=== PATIENT | female | born 1945 | race Caucasian/White ===

== ENCOUNTER 2020-02-28 15:37 | Outpatient (CLI) | payer MEDICARE, OTHER, SELFPAY ==
--- NOTE | 2020-02-28 15:52 | MM_ITS ---
WS: [id number] BILATERAL DIGITAL SCREENING MAMMOGRAPHY WITH CAD CLINICAL INFORMATION: SCREEN HISTORY: Screening mammogram. No current complaints. COMPARISON: TECHNIQUE: Bilateral CC and MLO views. FINDINGS: The breasts are composed of heterogeneous fibroglandular density tissue, which can limit the detectio n of small underlying mass lesions. No suspicious mass, asymmetry, calcifications, or architectural d istortion. No evidence of malignancy. MM/[id number] IMPRESSION: BI-RADS: 1-Negative FOLLOW UP: 1 Year Follow-up Recommend return to annual screening mammography.
== END 2020-02-28 15:38 | disposition home or self-care (01) ==
LOC: RADSHAW 15:45
PROVIDERS: Visit Provider Family Medicine
DX: Z12.31 Encounter for screening mammogram for malignant neoplasm of breast (principal)
CPT/HCPCS: 77067

== ENCOUNTER → 2021-02-02 08:38 | Outpatient (BNVA) | payer MEDICARE, OTHER, SELFPAY | PROVIDERS: Visit Provider Obstetrics & Gynecology | DX: N81.10 Cystocele, unspecified (principal); N81.6 Rectocele | CPT/HCPCS: 81000 ==

== ENCOUNTER → 2021-02-28 08:56 | Outpatient (BNVA) | payer MEDICARE, SELFPAY | PROVIDERS: PCP Family Medicine; Visit Provider Internal Medicine Rheumatology | DX: M18.0 Bilateral primary osteoarthritis of first carpometacarpal joints (principal); M19.041 Primary osteoarthritis, right hand; M19.042 Primary osteoarthritis, left hand; Z79.899 Other long term (current) drug therapy; M19.90 Unspecified osteoarthritis, unspecified site | CPT/HCPCS: 73130; 99203; 99204 ==

== ENCOUNTER 2021-02-28 09:57 | Outpatient (CLI) | payer MEDICARE, SELFPAY ==
--- NOTE | 2021-02-28 10:02 | XR_ITS ---
WS: [id number] LEFT HAND: 3 VIEW(S) TECHNIQUE: PA, oblique and lateral. HISTORY: M19.90 - Unspecified osteoarthritis, unspecified site COMPARISON: None available. No acute fracture or dislocation. Severe narrowing of the DIP joints with gullwing deformity and erosions. No periostitis. Moderate adrian rowing of the PIP joints. Advanced degenerative changes at the CMC and mild at the STT articulations. Prior avulsion fracture ulnar styloid. XR/XR hand LT min 3V* [id number] IMPRESSION: 1. 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 2. Additional advanced osteoarthritis at the CMC joint and mild at the STT art iculations.
--- NOTE | 2021-02-28 10:02 | XR_ITS ---
WS: [id number] RIGHT HAND: 3 VIEW(S) TECHNIQUE: PA, oblique and lateral. HISTORY: M19.90 - Unspecified osteoarthritis, unspecified site COMPARISON: None available. No acute fracture or dislocation. Severe narrowing of the DIP joints, second through fifth fingers. Gullwing deformity with erosions an d osteophyte formation. No periostitis definitely visualized. There is also mild narrowing of the PIP joints. Moderate CMC and STT arthritis. XR/XR hand RT min 3V* [id number] IMPRESSION: 1. Changes suspicious for erosive osteoarthritis most significantly involving the DIP joints. 2. Additional osteoarthritis at the CMC and STT articulations.
== END 2021-02-28 09:58 | disposition home or self-care (01) ==
PROVIDERS: PCP Family Medicine; Visit Provider Internal Medicine Rheumatology
DX: M19.90 Unspecified osteoarthritis, unspecified site (principal); Z79.899 Other long term (current) drug therapy
CPT/HCPCS: 73130

== ENCOUNTER 2021-03-15 09:42 | Outpatient (CLI) | payer MEDICARE, SELFPAY ==
--- NOTE | 2021-03-15 09:46 | MM_ITS ---
WS: [id number] SCREENING DIGITAL MAMMOGRAM WITH CAD HISTORY: SCREENING COMPARISON: 02/28/2020 and 11/24/2018 Bilateral CC and MLO views submitted. Computer aided detection analyzed. Breast composition: The breasts are heterogeneously dense, which may obscure small masses. No suspici ous masses, microcalcifications or architectural distortion. MM/[id number] IMPRESSION: BI-RADS: 1-Negative FOLLOW UP: 1 Year Follow-up
== END 2021-03-15 09:43 | disposition home or self-care (01) ==
LOC: RADSHAW 09:44
PROVIDERS: PCP Family Medicine; Visit Provider Obstetrics & Gynecology
DX: Z12.31 Encounter for screening mammogram for malignant neoplasm of breast (principal)
CPT/HCPCS: 77067

== ENCOUNTER → 2021-04-06 08:39 | Outpatient (BNVA) | payer MEDICARE, SELFPAY | PROVIDERS: PCP Family Medicine; Visit Provider Obstetrics & Gynecology | DX: N81.10 Cystocele, unspecified (principal); N81.9 Female genital prolapse, unspecified; Z01.812 Encounter for preprocedural laboratory examination | CPT/HCPCS: 87635 ==

== ENCOUNTER 2021-04-11 11:01 | Observation (INO) | payer MEDICARE, OTHER, SELFPAY ==
[2021-04-09 11:38] VITALS: BMI 23.3
[2021-04-09 12:20] LABS: Add Urine Microscopic? NO; Charge for UA Resulting for Rev
[2021-04-09 12:43] LABS: Basophils % 0.3 %; Eosinophils # 0.2 10^3/uL (0.0-0.8); Eosinophils % 2.6 %; Hematocrit 38.7 % (37.0-47.0); Hemoglobin 12.9 g/dL (11.5-15.3); Lymphocytes # 1.8 10^3/uL (0.8-4.8); Lymphocytes % 30.8 %; Mean Corpuscular HGB Conc 33.3 g/dL (30.0-36.0); Mean Corpuscular Hemoglobin 29.9 pg (28.0-34.0); Mean Corpuscular Volume 89.6 fl (81-99); Mean Platelet Volume 10.6 fL (7.4-10.4); Monocytes # 0.4 10^3/uL (0.2-0.9); Monocytes % 6.2 %; Neutrophils # 3.52 10^3/uL (1.8-7.7); Neutrophils % 60.1 %; Nucleated Red Blood Cells % 0 %; Platelet Count 288 10^3/cmm (130-400); Red Blood Count 4.32 10^6/uL (4.1-5.3); Red Cell Distribution Width 13.3 % (12.1-15.1); White Blood Count 5.9 10^3/uL (4.0-10.0)
[2021-04-09 12:46] LABS: Alanine Aminotransferase 15 U/L (0-33); Albumin Level 4.4 g/dL (3.5-5.2); Alkaline Phosphatase 83 IU/L (35-105); Anion Gap 17.9 (5-19); Aspartate Amino Transferase 32 U/L (0-32); Blood Urea Nitrogen 18 mg/dL (8-23); Calcium 8.7 mg/dL (8.5-10.5); Carbon Dioxide 21 mmol/L (22-29); Chloride 106 mmol/L (98-107); Globulin 2.1 g/dL (1.3-4.6); Glucose 83 mg/dL (65-115); Osmolality Calculated 293 mOsm/kg (285-295); Potassium 3.9 mmol/L (3.5-5.1); Sodium 141 mmol/L (136-145); Total Bilirubin 0.2 mg/dL (0.15-1.2); Total Protein 6.5 g/dL (6.6-8.7)
[2021-04-09 12:56] LABS: Bilirubin Urine Neg (Negative); Blood Urine Neg (Negative); Glucose Urine UA Norm (Normal); Ketones Urine Negative (Negative); Nitrate Urine Negative (Negative); Protein Urine Neg (Negative); Specific Gravity, Urine 1.025 (1.005-1.030); Urine Appearance Clear (CLEAR); Urine Color Straw (Yellow); pH Urine 5 (5-7)
[2021-04-09 12:57] LABS: Leukocyte Esterase Urine Negative (Negative); Urobilinogen Urine Norm (Negative)
--- NOTE | 2021-04-09 15:50 | ANES.PREANE2 ---
Pre-Anesthetic Assessment Pre-Anesthetic Assessment: Height/Weight: Height 1.75 m Weight 71.668 kg Preop Diagnosis: Cystocele stage III Proposed Procedure: Operation Date: 04/11/21 11:30 Proposed Procedures p Anterior Repair Anterior Colporrhaphy [id number](Not Applicable) - Kuldeep Villavicencio MD s Sling(Not Applicable) - Kuldeep Villavicencio MD s Sacrospinous Ligament Suspension(Not Applicable) - Kuldeep Villavicencio MD Was Beta Azucena taken within 24 hours: N/A Was Clonidine taken within 24 hours: N/A Social: Social History: No alcohol and No tobacco Exam: Pre-Anes Outpt Exam: alert, oriented x 3, clear to auscultation bilaterally and regular rate & rhythm Airway: Submandibular: WNL Cervical ROM: WNL MP: 2 Dentition: Full Musc/skel: Musc/skel: OA/DJD Anesthetic Plan: ASA status: 2 Anesthesia: General Risk of > 500 ml blood loss (7ml/kg in children): No PFSH Anesthesia PFSH: Medical History Arthritis [place]-Walker grade 3 cystocele Endometriosis IBS (irritable bowel syndrome) Joint pain Migraine Osteoarthritis of carpometacarpal (CMC) joint of both thumbs Osteoarthritis of hands, bilateral Vaginal vault prolapse Surgical History H/O: hysterectomy 1978--complete (c BSO) Hx of adenoidectomy Hx of cholecystectomy 1979 Hx of tonsillectomy Family History Mother Hyperlipidemia COPD (chronic obstructive pulmonary disease) Brother Hyperlipidemia Denies family history of Rheumatoid arthritis Diabetes Ovarian cyst Lupus Clotting disorder Chronic kidney disease (CKD) Anesthesia complication Bleeding disorder Cancer Hypertension Thyroid disease Stroke Social History (Updated 04/09/21 @ 08:31 by Pricilla Ruiz RN) Smoking and tobacco status: never smoked Alcohol intake: current Alcohol intake frequency: holidays/special occasions only Substance/Drug Use: never Data Anesthesia CBC & Chem 7: 04/09/21 11:50 04/09/21 11:50 Other Labs: Laboratory Results - last 48 hr 04/09/21 04/09/21 04/09/21 11:50 11:50 11:50 WBC 5.9 RBC 4.32 Hgb 12.9 Hct 38.7 MCV 89.6 MCH 29.9 MCHC 33.3 RDW 13.3 Plt Count 288 MPV 10.6 H Neut % (Auto) 60.1 Lymph % (Auto) 30.8 [place] % (Auto) 6.2 Eos % (Auto) 2.6 Baso % (Auto) 0.3 Neut # (Auto) 3.52 Lymph # (Auto) 1.8 [place] # (Auto) 0.4 Eos # (Auto) 0.2 Baso # (Auto) 0.0 Nucleated RBC % (auto) 0 Nucleated RBCs # 0.0 Sodium 141 Potassium 3.9 Chloride 106 Carbon Dioxide 21 L Anion Gap 17.9 BUN 18 Creatinine 0.6 GFR Calculation Not Reportable Glucose 83 Calculated Osmolality 293 Calcium 8.7 Total Bilirubin 0.2 AST 32 ALT 15 Alkaline Phosphatase 83 Total Protein 6.5 L Albumin 4.4 Globulin 2.1 Urine Color Urine Appearance Urine pH Ur Specific [place] Urine Protein Urine Glucose (UA) Urine Ketones Urine Blood Urine Nitrate Urine Bilirubin Urine Urobilinogen Ur Leukocyte Esterase Blood Type O Positive Rho(D) Type Positive Antibody Screen Negative 04/09/21 11:50 WBC RBC Hgb Hct MCV MCH MCHC RDW Plt Count MPV Neut % (Auto) Lymph % (Auto) [place] % (Auto) Eos % (Auto) Baso % (Auto) Neut # (Auto) Lymph # (Auto) [place] # (Auto) Eos # (Auto) Baso # (Auto) Nucleated RBC % (auto) Nucleated RBCs # Sodium Potassium Chloride Carbon Dioxide Anion Gap BUN Creatinine GFR Calculation Glucose Calculated Osmolality Calcium Total Bilirubin AST ALT Alkaline Phosphatase Total Protein Albumin Globulin Urine Color Straw Urine Appearance Clear Urine pH 5 Ur Specific [place] 1.025 Urine Protein Neg Urine Glucose (UA) Norm Urine Ketones Negative Urine Blood Neg Urine Nitrate Negative Urine Bilirubin Neg Urine Urobilinogen Norm Ur Leukocyte Esterase Negative Blood Type Rho(D) Type Antibody Screen Cardiac Studies: No Data to Display
[2021-04-11] VITALS (16 sets, daily range): BP systolic 102–138; BP diastolic 31–87; PULSE 64–79; RESP 10–20; TEMP 36.4–36.8; O2SAT 95–100
--- NOTE | 2021-04-11 08:37 | P.ANESUD_ITS ---
Pre-Anesthetic Update Pre-Anesthetic Assessment: Date of Surgery/Procedure: 04/11/21 Preop Rose gnosis: Cystocele stage III Proposed Procedure: Operation Date: 04/11/21 09:10 Proposed Procedures p Anterior Repair Anterior Colporrhaphy [id number](Not Applicable) - Kuldeep Villavicencio MD s Sling(Not Applicable) - Kuldeep Villavicencio MD s Sacrospinous Ligament Suspension(Not Applicable) - Kuldeep Villavicencio MD Any changes to Pre-Anesthetic Assessment?: No Last Intake: Intake Last Liquid Date 04/10/21 Last Liquid Time 22:30 Last Solid Date 04/10/21 Last Solid Time 22:30 Labs Last 48hrs: Laboratory Results - last 48 hr 04/09/21 04/09/21 04/09/21 11:50 11:50 11:50 WBC 5.9 RBC 4.32 Hgb 12.9 Hct 38.7 MCV 89.6 MCH 29.9 MCHC 33.3 RDW 13.3 Plt Count 288 MPV 10.6 H Neut % (Auto) 60.1 Lymph % (Auto) 30.8 [place] % (Auto) 6.2 Eos % (Auto) 2.6 Baso % (Auto) 0.3 Neut # (Auto) 3.52 Lymph # (Auto) 1.8 [place] # (Auto) 0.4 Eos # (Auto) 0.2 Baso # (Auto) 0.0 Nucleated RBC % (a uto) 0 Nucleated RBCs # 0.0 Sodium 141 Potassium 3.9 Chloride 106 Carbon Dioxide 21 L Anion Gap 17.9 BUN 18 Creatinine 0.6 GFR Calculation Not Reportable Glucose 83 Calculated Osmolal ity 293 Calcium 8.7 Total Bilirubin 0.2 AST 32 ALT 15 Alkaline Phosphata se 83 Total Protein 6.5 L Albumin 4.4 Globulin 2.1 Urine Color Urine Appearance Urine pH Ur Specific Gravit y Urine Protein Urine Glucose (UA) Urine Ketones Urine Blood Urine Nitrate Urine Bilirubin Urine Urobilinogen Ur Leukocyte Kendra ase Blood Type O Positive Rho(D) Type Positive Antibody Screen Negative 04/09/21 11:50 WBC RBC Hgb Hct MCV MCH MCHC RDW Plt Count MPV Neut % (Auto) Lymph % (Auto) [place] % (Auto) Eos % (Auto) Baso % (Auto) Neut # (Auto) Lymph # (Auto) [place] # (Auto) Eos # (Auto) Baso # (Auto) Nucleated RBC % (a uto) Nucleated RBCs # Sodium Potassium Chloride Carbon Dioxide Anion Gap BUN Creatinine GFR Calculation Glucose Calculated Osmolal ity Calcium Total Bilirubin AST ALT Alkaline Phosphata se Total Protein Albumin Globulin Urine Color Straw Urine Appearance Clear Urine pH 5 Ur Specific Gravit y 1.025 Urine Protein Neg Urine Glucose (UA) Norm Urine Ketones Negative Urine Blood Neg Urine Nitrate Negative Urine Bilirubin Neg Urine Urobilinogen Norm Ur Leukocyte Kendra ase Negative Blood Type Rho(D) Type Antibody Screen Vitals: Temperature 98 F 04/11/21 08:08 Temperature Source Temporal Artery S can 04/11/21 08:08 Pulse Rate 79 04/11/21 08:08 Pulse Rhythm 04/11/21 08:17 Pulse Strength 3+ Normal 04/11/21 08:17 Respiratory Rate 17 04/11/21 08:08 Blood Pressure 123/64 04/11/21 08:08 Blood Pressure Kaylynn n 83 04/11/21 08:08 Pulse Oximetry 99 04/11/21 08:08 Oxygen Delivery Me thod 04/11/21 08:17 Exam: Pre-Anes Outpt Exam: alert, oriented x 3, clear to auscultation bilaterally and regular rate & rhythm Cardiac Studies: No Data to Display
--- NOTE | 2021-04-11 08:41 | W.PM.OPSUD ---
Surgery/Procedure H&P Update DATE OF PROCEDURE: April 11, 2021 DATE H&P PERFORMED: 04/09/21 H&P UPDATE INFORMATION: I have reviewed H&P completed within last 30 days, I have examined patient prior to procedure and No changes to prior documentation PREOP DIAGNOSIS: Cystocele stage III PLANNED PROCEDURE: Operation Date: 04/11/21 09:10 Proposed Procedures p Anterior Repair Anterior Colporrhaphy [id number](Not Applicable) - Kuldeep Villavicencio MD s Sling(Not Applicable) - Kuldeep Villavicencio MD s Sacrospinous Ligament Suspension(Not Applicable) - Kuldeep Villavicencio MD
[2021-04-11] MEDS: sodium chloride 0.9% 500 ML IV (08:55)
[2021-04-11] MEDS: scopolamine 1.5 Patch 1 PATCH TRANSDERMA (09:00)
[2021-04-11] MEDS: sodium chloride 0.9% 1,000 ML 30 ML IV (09:01)
[2021-04-11] MEDS: estrogens Conjugated Cream 30 gm 1 APPLIC VAGINAL (10:20)
--- NOTE | 2021-04-11 10:26 | PM.OP ---
Operative Report Date of procedure: April 11, 2021 Pre-op Diagnosis: Cystocele stage III, stress urinary incontinence Post-op diagnosis: same Procedure Done: Anterior colporrhaphy augmented with allograft. Single incision mid-urethral sling. Sacrospinous fixation. Cystoscopy Implants: Coloplast Altis single incision sling Surgeon: Kuldepe Villavicencio MD Estimated blood loss (mL): 100 IV fluids (mL): 400 Urine output (mL): 300 Complications: None Findings: Cystocele stage III Condition: stable Disposition: PACU Procedure: After obtaining informed consent, the patient was taken to the operating room and placed in the supine position, given general anesthesia, and prepped and draped in sterile fashion. The abdomen, vulva and vagina were prepped and draped in a sterile manner. A time out procedure was performed. The anterior vaginal mucosa beneath the midurethra was infiltrated with 0.5% Marcaine with epinephrine. A vertical midline incision was made beneath the midurethra, nearly 1.5 cm length. Careful submucosal dissection was performed bilaterally up to the interior portion of the inferior pubic ramus. The insertion of adductor longus tendon on the patient?s pubic ramus was identified as reference land mimi. Palpated the notch along the internal edge of ischiopubic ramus where the adductor longus tendon and the inferior pubic ramus meet. The Altis single incision sling (SIS) was selected. Then the needle of the SIS inserted aiming at the location of this notch. One of the integrated self-fixating tips place onto the needle by sliding it over the end of the needle. The needle/sling assembly was inserted toward the location of identified reference notch making sure that the flat of the handle is perpendicular to the desired path. The needle was tracked along the posterior surface of the ischiopubic ramus until the midline mimi on the mesh is approximately at the midline position under the urethra. The needle was removed and the same was repeated on the contralateral side until the appropriate sling tension under the urethra was achieved ensuring that the mesh lays flat. The needle was removed and vaginal incision was closed in a running interlocking fashion with 2-0 Vicryl. The vaginal mucosa was scored in the midline with the Bovie approximately 1 cm from midurethral sling to 1 cm distal to the vaginal cuff. This vaginal mucosa was then undermined and then incised in the midline with the Metzenbaum scissors. The lateral aspects of the vaginal mucosa were then grasped with the Allis clamps and the vaginal mucosa was then dissected off the underlying fascia with the Metzenbaum scissors. Again, there was noted to be quite a bit of oozing at the incision, which was controlled with cautery. After adequate dissection was performed, bilaterally. An ACell MatriStem Pelvic Floor Matrix is modified at time of application to fit spacea, 4 x 4 cm piece . MatriStem PFM placed in front of cystocele ready to be implanted with the Basement Membrane facing the vagina mucosa. Suture is placed at distal end of graft and placed towards vaginal cuff. Final suture is placed on proximal portion of the graft to complete the placement overlying the bladder. Then Interrupted vertical mattress sutures of 0 Vicryl were used to elevate the cystocele superiorly. The excessive vaginal mucosa was then trimmed with the Metzenbaum scissors and the vaginal mucosa was then reapproximated in the running interlocking fashion with 2-0 Vicryl. The posterior vaginal mucosa is opened in the routine fashion. A finger is inserted through the incision in the posterior vaginal mucosa, dissecting out the rectovaginal space (RVS). The right rectal pillar (RRP) is identified. The rectal pillar can be bluntly perforated either with the finger or with the tip of a long Miranda clamp. A Brebritta-Navmarisela retractor is used for exposing the rectovaginal space in order to enter the pararectal space with retraction of the cardinal ligament, vagina, and rectum. Displacing the rectum to the left and the cardinal ligament and ureter anteriorly. A sponge dissector is used to bluntly dissect the sacrospinous ligament removing areolar tissue. The ischial spine was palpated directly, and a area approximately 2 cm medial to the spine was selected for insertion of the Anchorsure transvaginal sacrospinous fixation system. One end of the suture of Anchoresure system inserted through the sacrospinous ligament is placed through the muscular layer of the vagina. In a similar manner, the second suture is placed. The opposite end of the suture in the sacrospinous ligament is left free and held on a small hemostat. Then traction on this suture will draw the vaginal vault directly to the ligament, where a square knot affixes it to the sacrospinous ligament. After the brooke stich is tied the second safety stich is tied. Then the vaginal repair is carried out in routine fashion. Then the Levy catheter was removed and cystoscope was inserted. The bladder was filled with sterile water. Complete evaluation of the bladder mucosa was performed noting no lacerations, dimpling, tears, bleeding of the mucosa or muscular layers. Both ureteral orifices were identified. Prompt excretion of urine from both ureteral orifices was noted. Cystoscope was withdrawn. The Levy catheter was replaced. Excellent hemostasis was obtained. A vaginal pack is placed overnight as postoperative support for the vaginal tissues after graft placement and closure of vaginal incisions. Sponge, lap, needle, and instrument counts were correct times three. The patient was taken to the recovery room, awake and in stable condition.
[2021-04-11] MEDS: ketorolac 30 mg/mL INJ IVP ×3 (11:38→23:06)
[2021-04-11] MEDS: dextrose 5%-lactated ringers 1,000 ML 125 ML IV (13:30)
--- NOTE | 2021-04-11 14:17 | ANE.PACU2 ---
Inpatient post-anesthesia follow up: Airway intact: Yes Vital signs: Temperature 97.5 F Pulse Rate 69 Respiratory Rate 16 Blood Pressure 138/63 Pulse Oximetry 95 Oxygen Delivery Me thod Room Air Oxygen Flow Rate 10 Fraction of Inspir ed Oxygen Hydration adequate: Yes Nausea and vomiting: No Pain level: 3 Mental status: Baseline
[2021-04-11] MEDS: artificial tears Op Soln 15 mL Btl 1 DROP EYE-BOTH (16:17)
[2021-04-11] MEDS: docusate sodium 100 mg Capsule PO (17:53)
[2021-04-12 04:58] LABS: Hematocrit 32.8 % (37.0-47.0); Hemoglobin 11.1 g/dL (11.5-15.3); Mean Corpuscular HGB Conc 33.8 g/dL (30.0-36.0); Mean Corpuscular Hemoglobin 30.4 pg (28.0-34.0); Mean Corpuscular Volume 89.9 fl (81-99); Mean Platelet Volume 9.5 fL (7.4-10.4); Platelet Count 236 10^3/cmm (130-400); Red Blood Count 3.65 10^6/uL (4.1-5.3); Red Cell Distribution Width 13.2 % (12.1-15.1); White Blood Count 7.7 10^3/uL (4.0-10.0)
[2021-04-12 05:15] VITALS: BP 110/53; PULSE 74; RESP 14; O2SAT 94
--- NOTE | 2021-04-12 05:58 | PC.NURSE ---
Addendum entered by Maria Fernanda Castorena RN 04/12/21 05:59: education given at 0500 with removal of Levy. Vaginal packing removed at this time intact Original Note: patient educated on procedure for post void residuals. requested that patient notify nurse prior to voiding
[2021-04-12] MEDS: docusate sodium 100 mg Capsule PO (09:08)
[2021-04-12] MEDS: ibuprofen 800 mg tablet PO (09:08)
--- NOTE | 2021-04-12 09:51 | PM.OBGYDC ---
Discharge Providers EXTERNAL GRINDER Date of Admission: 04/11/21 11:01 Date of Discharge: 04/12/21 Attending Provider at Admission: Kuldeep Villavicencio MD Attending Provider at Discharge: Kuldeep Villavicencio MD Primary Care Provider: Ryan Garcia MD Reason for Visit Reason for Visit: anterior colporrhapy Hospital Course Hospital Course Mrs. King 76-year-old female with cystocele stage III and urinary incontinence. Admitted for planned anterior colporrhaphy augmented with allograft, single incision mid urethral sling, and sacrospinous fixation. The procedures were performed without complication. Overnight observation was uneventful. She is afebrile and hemodynamically stable. Tolerating diet well. Ambulating without difficulty. Pain well under control. Her PVR was elevated. And she will be discharged with a Levy catheter bag and instructed to follow-up at the clinic on Friday Physical Exam Narrative: EXAM NARRATIVE: GA: Alert and oriented ?3. HEENT: WNL. Heart: Regular rate and rhythm. Lungs: Clear to auscultation bilaterally. Abdomen: Bowel sounds present, nontender. LINEN ROOM SUPERVISOR: Spotting bleeding. Extremities: No edema, no cyanosis, no calves pain. Urinary Catheter Management^: Levy: Cath Placed During This Visit: yes, but has since been removed by the nurse Reason for Continuing Indwelling Catheter: Decision to DC Catheter Urinary Catheter Date of Insertion: 04/11/21 Urinary Catheter Time of Insertion: 09:25 Date Urinary Catheter Removed: 04/12/21 Time Urinary Catheter Discontinued: 05:00 History History History 1 Term 1 Miscarriages/Ectopic 0 0 Living Children 1 Discharge Data Data Completed and Pending: Pending at discharge Category Date Time Status ES surgery / GI i mages Routine Exams 04/11/21 10:07 Taken Labs from last 24 hours 04/12/21 04:56 WBC 7.7 RBC 3.65 L Hgb 11.1 L Hct 32.8 L MCV 89.9 MCH 30.4 MCHC 33.8 RDW 13.2 Plt Count 236 MPV 9.5 Vitals: Last Vital Signs Temp 98.2 F 04/11/21 18:30 Pulse 74 04/12/21 05:15 Resp 14 04/12/21 05:15 BP 110/53 04/12/21 05:15 Pulse Ox 94 04/12/21 05:15 Discharge Plan Discharge Patient Disposition: Home Condition: Stable Prescriptions: New ibuprofen 800 mg tablet 800 mg PO TID PRN (Reason: pain) Qty: 60 RF: 0 hydrocodone-acetaminophen 5-325 mg tablet 1 tab PO Q4H PRN (Reason: pain) Qty: 20 RF: 0 acetaminophen 325 mg capsule 325 mg PO Q4H PRN (Reason: fever or pain) Qty: 60 RF: 0 nitrofurantoin macrocrystal 100 mg capsule 100 mg PO BID 7 Days Qty: 14 RF: 0 Continued omega-3 fatty acids [Fish Oil Concentrate] 1,000 mg capsule 1,000 mg PO DAILY RF: 0 Ultra CoQ10 75 mg capsule 75 mg PO DAILY RF: 0 fexofenadine [Yohana Allergy] 60 mg tablet 60 mg PO DAILY PRN (Reason: Allergy Symptoms) RF: 0 peppermint oil 0.2 mL capsule,delayed release(DR/EC) 0.2 ml PO PRN (Reason: ibs) RF: 0 multivitamin with minerals [Hair,Skin and Nails] Tablet 1 tab PO DAILY RF: 0 loperamide [Imodium A-D] 2 mg tablet 2 mg PO Q6H PRN (Reason: Diarrhea) RF: 0 diclofenac sodium 1 % gel 2 g topical QID Qty: 100 RF: 2 lutein extract-zeaxanthin ext 15-0.7 mg capsule 15 cap PO DAILY RF: 0 vit A-vit C-vit U-xdkx-uvcnif 7,160-113-100 mlhx-xv-qjmv tablet PO RF: 0 cosme root-pyridoxine HCl(B6) 325-25 mg capsule 325 cap PO DAILY RF: 0 Premarin 0.625 mg tablet 0.625 mg PO DAILY Qty: 30 RF: 6 hydroxychloroquine 200 mg tablet 200 mg PO DAILY RF: 0 Discharge Orders: Discharge Order (Routine); Ordered 04/12/21 Ordered By: Kuldeep Villavicencio Referrals: Kuldeep Villavicencio MD [Physician] - 04/17/21 3:15 pm (Your 1 week post-op appointment is scheduled for 04/17/21 @3:15. Your 6 week post-op appointment is scheduled for 05/22/21 @2:30. ) Discharge Diet: Usual diet Discharge Activity: Increase activity as tolerated Patient Instructions: Cystocele (DC), Bladder Sling (GEN), Anterior Vaginal Repair (DC), OB Discharge Report, OB Food/Drug Interaction Guide, Opioid Safety Activity Restrictions/Additional Instructions: 1. Please call [facility] on next working day to make your post-operative appointment in 2 weeks. 2. Please stay home until you come back to the clinic on first post-operative check up. 3. Please follow instructions on your medications CAREFULLY. 4. If you have abdominal incision, do not cover it unless dressing is necessary because of drainage. OK to shower, but avoid bath. Leave steri-strips until they fall off. If they are still on one week after surgery, you may remove them. 5. If you had vaginal surgery or vaginal repair, Dr. Villavicencio may instruct you to take SITZ bath. 6. Yellow, blood tinged odorous vaginal discharge is usually normal after hysterectomy or vaginal surgeries. 7. No sexual intercourse, tampons, or douches until you are completely released from the post-operative care. 8. Avoid constipation by eating right and maybe using some Metamucil or Milk of Magnesia. 9. All prescription refills are given during the working hours. Please do no wait till it runs out. Call the clinic at [phone] before your medication runs out. The clinic will get in touch with your doctor to prescribe medications if necessary. 10. Please remain within 40 mile radius from our hospital because emergencies do happen now and then during the post-operative period. 11. If you have stairs at home, take one step at a time slowly and minimize the number of trips. It helps to stay in one floor for the next few days. No lifting except what you can lift by one hand until you are released from the post-operative care. 12. Driving is discouraged until you are well healed. It may be 3-4 weeks before you feel strong enough to drive. You should be able to turn and look through the rear window without pain and you should be able to push the brake pedal very hard without pain before you drive. No fast rules, but SAFETY should be your primary concern. DO NOT drive if you are on sedating medications such as narcotics. 13. Call the clinic (during working hours) to make urgent appointment or go to the Emergency room, if any of the following occurs: i. Vaginal bleeding becomes heavy, more than a period. ii. Incision becomes red and sore, or drains pus. iii. Your temperature is over 100.4 or you have chill. iv. IV site becomes red and swollen (a little ``knot?? is usually OK) v. Persistent nausea and vomiting vi. Persistent constipation or diarrhea vii. Rash or allergic reaction to medications. Discharge Attestations EXTERNAL GRINDER Time Spent in Discharge Care*: greater than 30 min Coding Level of Care Code Acute Research Biologist for Татьяна Mackey
[2021-04-12 10:11] VITALS: BP 107/53; PULSE 73; RESP 17; TEMP 36.6; O2SAT 97
== END 2021-04-12 11:30 | disposition home or self-care (01) ==
LOC: OBGYN 11:01
PROVIDERS: Admitting Provider Obstetrics & Gynecology; PCP Family Medicine; Visit Provider Obstetrics & Gynecology
PROC: 0JQC0ZZ Repair Pelvic Region Subcutaneous Tissue and Fascia, Open Approach (ICD-10-PCS; CPT 57240; principal; 2021-04-11 09:00)
PROC: (CPT 57288; 2021-04-11 09:00)
PROC: (CPT 57282; 2021-04-11 09:00)
DX: N81.10 Cystocele, unspecified (principal); R32 Unspecified urinary incontinence; Z90.710 Acquired absence of both cervix and uterus
CPT/HCPCS: 57240; 57267; 57288; 36415; 51702; 51798; 80053; 81003; 85025; 85027; 86850; 86900; 96365; C1713; C1762; G0378; J0690; J1885; J2704; J3010; J3490; J7030; J7040

== ENCOUNTER 2021-05-02 13:04 | Outpatient (CLI) | payer MEDICARE, OTHER, SELFPAY ==
--- NOTE | 2021-05-02 13:30 | US_ITS ---
WS: [id number] ULTRASOUND BILATERAL BREAST HISTORY: Pain. COMPARISON: 11/24/2017. Bilateral screening mammogram 03/15/2021 TECHNIQUE: 2-D and Doppler. All 4 quadrants of each breast are imaged. There is a hypoechoic nodule in the RIGHT breast at 10:00, 3 cm from the nipple. This nodule measures 7 x 5 x 5 mm. No increased vascularity. There are a few a djacent mildly dilated ducts extending towards the nipple. Similar mild duct dilatation in the LEFT breast. No mass. US/US breast BI complete [id number] IMPRESSION: BI-RADS: 3-Probably Benign FOLLOW-UP: 6 Month Follow-up Recommend 6 month RIGHT breast ultrasound follow-up. There is a hypoechoic nodu le which is probably a fibroadenoma or complex cyst. Alternatively if the patie nt desires ultrasound-guided biopsy could be obtained.
== END 2021-05-02 13:05 | disposition home or self-care (01) ==
LOC: RAD 13:07
PROVIDERS: PCP Family Medicine; Visit Provider Obstetrics & Gynecology
DX: R92.2 Inconclusive mammogram (principal)
CPT/HCPCS: 76641

== ENCOUNTER → 2021-06-28 13:10 | Outpatient (BNVA) | payer MEDICARE, OTHER, SELFPAY | PROVIDERS: PCP Family Medicine; Visit Provider Internal Medicine Rheumatology | DX: M19.041 Primary osteoarthritis, right hand (principal); M19.042 Primary osteoarthritis, left hand; M18.0 Bilateral primary osteoarthritis of first carpometacarpal joints; Z79.899 Other long term (current) drug therapy | CPT/HCPCS: 99213; 99214 ==

== ENCOUNTER 2021-09-17 14:35 | Outpatient (CLI) | payer MEDICARE, OTHER, SELFPAY ==
--- NOTE | 2021-09-17 14:47 | XR_ITS ---
WS: [email or web address] SCREENING DEXA SCAN [employer] CLINICAL INFORMATION: OSTEOPENIA COMPARISON: 2017 FINDINGS: The L1-L4 bone mineral density measures 1.132 g/cm2. This corresponds to a T score score of -0.4 and Z score of 1.2. Left femoral neck bone mineral density measures 0.825 g/cm2. This corresponds to a T score of -1.4 an d Z score of 0.2. Right femoral neck bone mineral density measures 0.807 g/cm2. This corresponds to a T score -1.6of an d Z score of 0.0. Mean femoral neck bone mineral density measures 0.816 g/cm2. This corresponds to a T score of -1.5 an d Z score of 0.1. XR/XR DEXA axial skeleton* [id number] IMPRESSION: Normal bone mineralization lumbar spine. Osteopenia in the femoral necks. Patient's FRAX calculated 10 year probability for major osteoporotic fracture i s 16.9 % and osteoporotic hip fracture is 3.2%.
== END 2021-09-17 14:36 | disposition home or self-care (01) ==
LOC: RAD 14:40
PROVIDERS: PCP Family Medicine; Visit Provider Family Medicine
DX: Z78.0 Asymptomatic menopausal state (principal)
CPT/HCPCS: 77080

== ENCOUNTER 2021-11-06 14:11 | Outpatient (CLI) | payer MEDICARE, OTHER, SELFPAY ==
--- NOTE | 2021-11-06 14:30 | US_ITS ---
WS: [email or web address] ULTRASOUND BREAST RIGHT TECHNIQUE: Ultrasound right breast focused area of concern. CLINICAL INFORMATION: R92.2 - Inconclusive mammogram COMPARISON: Ultrasound May 02, 2021 FINDINGS: Again seen is the hypoechoic ovoid lesion at the 10:00 position 3 cm from the nipple. This is unchang ed in appearance from previous measuring 5 x 5 x 4 mm. This remains technically indeterminant. Recomm end additional six-month follow-up to confirm stability. Additional lesion consistent with benign simple appearing cyst at the 10:00 position 2 cm from the ni pple measuring 6 x 6 x 4 mm is also unchanged. Incidental ductal ectasia. US/US breast RT limited* [id number] IMPRESSION: BI-RADS 3 probably benign FOLLOW UP: 6 months Recommend additional 6 month follow-up ultrasound of the indeterminate RIGHT br east hypoechoic lesion at the 10:00 position 3 cm from the nipple.
== END 2021-11-06 14:12 | disposition home or self-care (01) ==
PROVIDERS: PCP Family Medicine; Visit Provider Obstetrics & Gynecology
DX: R92.2 Inconclusive mammogram (principal)
CPT/HCPCS: 76642

== ENCOUNTER 2022-03-28 06:00 | Outpatient (RCR) | payer MEDICARE, OTHER, SELFPAY | END 2022-04-27 23:59 | disposition home or self-care (01) | LOC: SPT 06:00 | PROVIDERS: PCP Family Medicine; Visit Provider Family Medicine | DX: M25.552 Pain in left hip (principal) | CPT/HCPCS: 97110; 97161 ==

== ENCOUNTER 2022-04-28 06:00 | Outpatient (RCR) | payer MEDICARE, OTHER, SELFPAY | END 2022-05-23 16:29 | disposition home or self-care (01) | LOC: SPT 06:00 | PROVIDERS: PCP Family Medicine; Visit Provider Family Medicine | DX: G57.00 Lesion of sciatic nerve, unspecified lower limb (principal) | CPT/HCPCS: 97530 ==

== ENCOUNTER 2022-05-06 10:52 | Outpatient (CLI) | payer MEDICARE, OTHER, SELFPAY ==
--- NOTE | 2022-05-06 11:00 | US_ITS ---
WS: [email or web address] ULTRASOUND BREAST RIGHT TECHNIQUE: Ultrasound right breast focused area of concern. CLINICAL INFORMATION: N63.0 - Unspecified lump in unspecified breast COMPARISON: Ultrasound November 06, 2021 FINDINGS: Again seen is an anechoic simple cyst at the 10:00 position. This is stable in appearance measuring 5 .1 x 4.3 x 4.3 mm. This is stable since November 06, 2021. The additional previously described nonspecific hypoechoic lesion at the 10:00 position is not defini tely visualized today. Recommend additional six-month follow-up to confirm resolution. No other suspi cious findings. US/US breast RT limited* [id number] IMPRESSION: BI-RADS 3 probably benign FOLLOW UP: 6 month follow-up ultrasound RIGHT breast
== END 2022-05-06 10:53 | disposition home or self-care (01) ==
LOC: RAD 10:54
PROVIDERS: PCP Family Medicine; Visit Provider Obstetrics & Gynecology
DX: N63.11 Unspecified lump in the right breast, upper outer quadrant (principal); N60.01 Solitary cyst of right breast
CPT/HCPCS: 76642

== ENCOUNTER 2022-06-04 15:17 | Outpatient (CLI) | payer MEDICARE, OTHER, SELFPAY ==
--- NOTE | 2022-06-04 15:37 | MM_ITS ---
WS: [email or web address] BILATERAL 3D TOMOSYNTHESIS DIGITAL DIAGNOSTIC MAMMOGRAPHY WITH CAD CLINICAL INFORMATION: RT BREAST LUMP;ANNUAL HISTORY: RIGHT breast lump COMPARISON: March 15, 2021 and ultrasound May 06, 2022 TECHNIQUE: Bilateral CC, MLO, and ML views. FINDINGS: The breasts are composed of heterogeneous fibroglandular density, which can limit the detection of sm all underlying mass lesions. A few incidental punctate calcifications. Previously described lesions in the RIGHT breast on ultrasound not definitely visualized on mammograp hy. Otherwise no significant parenchymal changes in the RIGHT or LEFT breast compared to March 16, 2021. MM/[place] [id number] IMPRESSION: BI-RADS: 2-Benign FOLLOW UP: 1 Year Follow-up Patient previously scheduled to return for ultrasound RIGHT breast, six-month f ollow-up, from May 06, 2022 ultrasound examination Otherwise bilateral diagnostic mammography in one year
== END 2022-06-04 15:18 | disposition home or self-care (01) ==
PROVIDERS: PCP Family Medicine; Visit Provider Obstetrics & Gynecology
DX: N63.10 Unspecified lump in the right breast, unspecified quadrant
CPT/HCPCS: 77062; G0279

== ENCOUNTER 2022-11-04 14:59 | Outpatient (CLI) | payer MEDICARE, OTHER, SELFPAY ==
--- NOTE | 2022-11-04 15:15 | US_ITS ---
WS: [email or web address] ULTRASOUND BREAST RIGHT TECHNIQUE: Ultrasound right breast focused area of concern. CLINICAL INFORMATION: N63.0 - Unspecified lump in unspecified breast COMPARISON: 05/06/2022 , 11/06/2021, and May 02, 2021 FINDINGS: Previously described simple cyst at the 10:00 position 3 cm from the nipple is unchanged measuring 5. 5 x 4.2 x 4.5 mm. Previously described smaller adjacent hypoechoic lesion is visualized today measuring 4.4 x 2.9 x 4.2 mm at the 10:00 position 3 cm from the nipple. This is stable compared to November 06, 2021. This likely represents a tiny slightly complex cyst. Recommend return to annual screening mammography. US/US breast RT limited* [id number] IMPRESSION: BI-RADS 2 benign Recommend return to annual screening mammography.
== END 2022-11-04 15:00 | disposition home or self-care (01) ==
PROVIDERS: PCP Family Medicine; Visit Provider Obstetrics & Gynecology
DX: N60.01 Solitary cyst of right breast (principal); A67 Pinta [carate]
CPT/HCPCS: 76642

== ENCOUNTER 2023-09-08 15:21 | Outpatient (CLI) | payer MEDICARE, OTHER, SELFPAY ==
--- NOTE | 2023-09-08 15:24 | MM_ITS ---
WS: [email or web address] BILATERAL 3D TOMOSYNTHESIS DIGITAL SCREENING MAMMOGRAPHY WITH CAD CLINICAL INFORMATION: SCREENING HISTORY: Screening mammogram. No current complaints. COMPARISON: 06/04/2022 TECHNIQUE: Bilateral CC and MLO views. FINDINGS: The breasts are composed of heterogeneous fibroglandular density tissue, which can limit the detectio n of small underlying mass lesions. Bilateral scattered punctate calcifications similar to previous. Progressed clustered calcifications lower outer LEFT breast. Recommend spot magnification views. This is best seen on the cc view. RIGHT breast is unchanged. MM/[place] [id number] IMPRESSION: BI-RADS: 0-Incomplete: Need additional imaging evaluation FOLLOW UP: Need Additional Imaging Recommend spot magnification views of the LEFT breast clustered calcifications.
== END 2023-09-08 15:22 | disposition home or self-care (01) ==
LOC: RAD 15:21
PROVIDERS: PCP Family Medicine; Visit Provider Nurse Practitioner Women's Health
DX: Z12.31 Encounter for screening mammogram for malignant neoplasm of breast (principal); R92.333 Mammographic heterogeneous density, bilateral breasts; R92.1 Mammographic calcification found on diagnostic imaging of breast
CPT/HCPCS: 77063; 77067

== ENCOUNTER 2023-10-02 14:23 | Outpatient (CLI) | payer MEDICARE, OTHER, SELFPAY ==
--- NOTE | 2023-10-02 14:30 | MM_ITS ---
NOTE: Report was unsigned for reason: Order was edited. Original Signature date and time was: 10/02/23 @ 1525 WS: [email or web address] LEFT 3D TOMOSYNTHESIS DIGITAL MAMMOGRAPHY WITH CAD CLINICAL INFORMATION: R92.8 - Other abnormal and inconclusive findings on diagn... HISTORY: Additional views for calcifications COMPARISON: 09/08/2023 TECHNIQUE: 2 views of the left breast were obtained. FINDINGS: The left breast is composed of heterogeneous fibroglandular density tissue, which can limit the detection of small underlying mass lesions. Magnification views obtained of the clustered calcifications outer LEFT breast. These are more faint in appearance today. These are only well seen on the cc view. Recommend 6- month follow-up to confirm stability. MTDD MM/[id number] IMPRESSION: BI-RADS: 3-Probably Benign FOLLOW UP: 6 Month Follow-up Recommend 6-month follow-up LEFT breast diagnostic mammography with spot magnif ication views of the faint calcifications outer LEFT breast
== END 2023-10-02 14:24 | disposition home or self-care (01) ==
LOC: RAD 14:23
PROVIDERS: PCP Nurse Practitioner Women's Health; Visit Provider Obstetrics & Gynecology
DX: R92.8 Other abnormal and inconclusive findings on diagnostic imaging of breast (principal); R92.332 Mammographic heterogeneous density, left breast; R92.1 Mammographic calcification found on diagnostic imaging of breast
CPT/HCPCS: 77061; 77062; G0279

== ENCOUNTER 2024-02-17 15:15 | Observation (INO) | payer MEDICARE, OTHER, SELFPAY ==
[2024-02-12 11:15] LABS: Basophils % 0.5 %; Eosinophils # 0.1 10^3/uL (0.0-0.8); Eosinophils % 2.2 %; Hematocrit 39.7 % (36-47); Lymphocytes # 2.4 10^3/uL (0.8-4.8); Lymphocytes % 39.1 %; Mean Corpuscular HGB Conc 33.2 g/dL (30-55); Mean Corpuscular Hemoglobin 30.8 pg (27-33); Mean Corpuscular Volume 92.8 fl (85-98); Mean Platelet Volume 9.2 fL (7.4-10.4); Monocytes # 0.6 10^3/uL (0.2-0.9); Monocytes % 9.8 %; Neutrophils # 2.91 10^3/uL (1.8-7.7); Neutrophils % 48.1 %; Nucleated Red Blood Cells % 0 %; Platelet Count 290 10^3/cmm (157-399); Red Blood Count 4.28 10^6/uL (3.85-5.65); Red Cell Distribution Width 13.3 % (12.1-15.1); White Blood Count 6.04 10^3/uL (3.29-11.43)
--- NOTE | 2024-02-12 11:30 | P.ANESASSM_ITS ---
Pre-Anesthetic Assessment Height/Weight: Height 5 ft 9 in Preop Diagnosis: Prolapse Operation Date: 02/17/24 12:05 Proposed Procedures p Anterior Repair Anterior Colporrhaphy 16773, 89601, N81.10, N81.6(Not Applicable) - Kuldeep Villavicencio MD s Posterior Repair Posterior Colporrhaphy(Not Applicable) - Kuldeep Villavicencio MD s Sacrospinous Ligament Suspension Sacrospinous Fixation(Not Applicable) - Kuldeep Villavicencio MD Was Beta Azucena taken within 24 hours: N/A Was Clonidine taken within 24 hours: N/A Social No alcohol and No tobacco Exam alert, oriented x 3, clear to auscultation bilaterally and regular rate & rhythm Airway Submandibular: within normal limits Cervical ROM: within normal limits Mallampati: Class II Dentition: full Anesthetic Plan ASA status: 2 Anesthesia: General Other: No prior issues with anesthesia Patient had a terrible experience with IV in preop last time Plan to be NPO after midnight Patient does take tramadol occasionally for arthritis Denies any cardiac or pulmonary issues Labs 02/12/2024 reviewed and acceptable for procedure METs greater than 4 Plan for general anesthesia Medications/Allergies Home Medications Medication Instructions Recorded Confirmed Last Taken Type coenzyme Q10 75 mg capsule (Ultra 75 mg PO DAILY 08/21/20 02/12/24 02/11/24 History CoQ10) multivitamin with minerals 1 tab PO DAILY 08/21/20 02/12/24 02/11/24 History (Hair,Skin and Nails tablet) omega-3 fatty acids 1,000 mg 1,000 mg PO DAILY 08/21/20 02/12/24 02/11/24 History capsule (Fish Oil Concentrate) peppermint oil 0.2 mL 0.2 ml PO DAILY PRN ibs 08/21/20 02/12/24 02/11/24 History capsule,delayed release loperamide 2 mg tablet (Imodium 2 mg PO Q6H PRN Diarrhea 02/28/21 02/12/24 02/12/24 History A-D) cosme root 325 mg-pyridoxine HCl 325 cap PO DAILY 04/09/21 02/12/24 02/11/24 History (vitamin B6) 25 mg capsule lutein 15 mg-zeaxanthin extract 15 cap PO DAILY 04/09/21 02/12/24 02/11/24 History 0.7 mg capsule acetaminophen 325 mg capsule 325 mg PO Q4H PRN fever or pain 04/12/21 02/12/24 02/12/24 Rx #60 caps lysine 500 mg tablet (L-Lysine) 500 mg PO DAILY 05/10/21 02/12/24 02/10/24 History diclofenac sodium 1 % topical gel 2 g topical QID PRN Pain 05/22/21 02/12/24 Unknown History fexofenadine 60 mg tablet (Yohana 60 mg PO DAILY Allergy Symptoms 05/22/21 02/12/24 02/12/24 History Allergy) conjugated estrogens 0.625 mg 0.625 mg PO DAILY #30 tabs 03/18/22 02/12/24 02/11/24 Rx tablet (Premarin) aspirin 81 mg chewable tablet 81 mg PO DAILY 06/26/22 02/12/24 01/06/24 History meloxicam 15 mg tablet 15 mg PO DAILY 06/26/22 02/12/24 02/11/24 History tramadol 50 mg tablet 50 mg PO DAILY 06/26/22 02/12/24 02/12/24 History Allergies Allergy/AdvReac Type Severity Reaction Status Date / Time adhesive Allergy rash Verified 02/09/24 15:10 lidocaine Allergy rash Verified 02/09/24 15:10 neomycin Allergy rash Verified 02/09/24 15:10 [facility] Anesthesia Medical History Aftercare following surgery of the genitourinary system Arthritis [employer] grade 3 cystocele Endometriosis IBS (irritable bowel syndrome) Joint pain Migraine Osteoarthritis of carpometacarpal (CMC) joint of both thumbs Osteoarthritis of hands, bilateral Vaginal vault prolapse Surgical History H/O: hysterectomy 1978--complete (c BSO) Hx of adenoidectomy Hx of cholecystectomy 1979 Hx of tonsillectomy S/P anterior colporrhaphy 04/11/2021- anterior colporrhaphy augmented with allograft, single incision mid-urethal sling, sacrospinous fixation and cystoscopy performed by Dr. Villavicencio at [facility] Family History Mother Hyperlipidemia Brother Hyperlipidemia Denies family history of Colon cancer Ovarian cancer Diabetes Breast cancer Hypertension Uterine cancer Thyroid disease Stroke Social History Smoking and tobacco/nicotine status: never used tobacco/nicotine Substance/Drug Use: never Data Anesthesia 02/12/24 11:00 02/12/24 11:00 Short CBC 02/12/24 Range/Units 11:00 WBC 6.04 (3.29-11.43) 10^3/uL Hgb 13.20 (11.27-16.99) g/dL Hct 39.7 (36-47) % MCV 92.8 (85-98) fl Plt Count 290 (157-399) 10^3/cmm Neut % (Auto) 48.1 % Neut # (Auto) 2.91 (1.8-7.7) 10^3/uL Cardiac Studies: 2 No Data to Display
[2024-02-12 11:34] LABS: Alanine Aminotransferase 15 U/L (0-33); Albumin Level 4.3 g/dL (3.5-5.2); Alkaline Phosphatase 76 U/L (35-105); Anion Gap 14.2 (5-19); Aspartate Amino Transferase 31 U/L (0-32); Blood Urea Nitrogen 22 mg/dL (8-23); Calcium 8.9 mg/dL (8.5-10.5); Carbon Dioxide 25 mmol/L (22-29); Chloride 107 mmol/L (98-107); Globulin 2.2 g/dL (1.3-4.6); Glucose 76 mg/dL (65-115); Osmolality Calculated 296 mOsm/kg (285-295); Potassium 4.2 mmol/L (3.5-5.1); Sodium 142 mmol/L (136-145); Total Bilirubin 0.3 mg/dL (0.15-1.2); Total Protein 6.5 g/dL (6.6-8.7)
[2024-02-17] VITALS (17 sets, daily range): BP systolic 112–156; BP diastolic 54–78; PULSE 63–84; RESP 8–18; TEMP 36.1–36.9; O2SAT 91–100; BMI 22.8
[2024-02-17] MEDS: MIDAZOLAM HCL 10 MG/5 ML UDC 20 MG PO (11:02)
[2024-02-17] MEDS: sodium chloride 0.9% 1,000 ML 30 ML IV (11:37)
[2024-02-17] MEDS: enoxaparin 30 mg/0.3 mL Syringe SUBCUT (11:37)
[2024-02-17] MEDS: ceFAZolin 2,000 mg SDV 2000 MG IVP (12:29)
--- NOTE | 2024-02-17 12:40 | P.ANESUD_ITS ---
Pre-Anesthetic Update Pre-Anesthetic Assessment: Date of Surgery/Procedure: 02/17/24 Preop Rose gnosis: Cystocele, rectocele Proposed Procedure: Operation Date: 02/17/24 11:55 Proposed Procedures p Anterior Repair Anterior Colporrhaphy 76927, 58610, N81.10, N81.6(Not Applicable) - Kuldeep Villavicencio MD s Posterior Repair Posterior Colporrhaphy(Not Applicable) - Kuldeep Villavicencio MD s Sacrospinous Ligament Suspension Sacrospinous Fixation(Not Applicable) - Kuldeep Villavicencio MD Any changes to Pre-Anesthetic Assessment?: No Last Intake: Intake Last Liquid Date 02/16/24 Last Liquid Time 22:00 Last Solid Date 02/16/24 Last Solid Time 22:00 Labs Last 48hrs: Blood Bank 02/17/24 11:37 Blood Type O Positive Rho(D) Type Rh positive Vitals: Temperature 98.4 F 02/17/24 10:45 Temperature Source Temporal Artery S can 02/17/24 10:45 Pulse Rate 65 02/17/24 12:25 Pulse Rhythm Regular 02/17/24 10:45 Pulse Strength 3+ Normal 02/17/24 10:45 Respiratory Rate 18 02/17/24 10:45 Blood Pressure 148/73 02/17/24 10:45 Blood Pressure Kaylynn n 98 02/17/24 10:45 Pulse Oximetry 96 02/17/24 12:25 Oxygen Delivery Me thod Nasal Cannula 02/17/24 12:25 Oxygen Flow Rate 2 02/17/24 12:25 Exam: Pre-Anes Outpt Exam: alert, oriented x 3, clear to auscultation bilaterally and regular rate & rhythm Cardiac Studies: No Data to Display
--- NOTE | 2024-02-17 13:12 | W.PM.OPSUD ---
Surgery/Procedure H&P Update DATE OF PROCEDURE: February 17, 2024 DATE H&P PERFORMED: 02/09/24 H&P UPDATE INFORMATION: I have reviewed H&P completed within last 30 days, I have examined patient prior to procedure and No changes to prior documentation PREOP DIAGNOSIS: Cystocele, rectocele PLANNED PROCEDURE: Operation Date: 02/17/24 11:55 Proposed Procedures p Anterior Repair Anterior Colporrhaphy 03448, 13096, N81.10, N81.6(Not Applicable) - Kuldeep Villavicencio MD s Posterior Repair Posterior Colporrhaphy(Not Applicable) - Kuldeep Villavicencio MD s Sacrospinous Ligament Suspension Sacrospinous Fixation(Not Applicable) - Kuldeep Villavicencio MD
[2024-02-17] MEDS: lidocaine-epi 2% PF 1:200,000 20 mL SDV 10 ML XX (14:04)
--- NOTE | 2024-02-17 15:01 | PM.OP ---
Operative Report Date of procedure: February 17, 2024 Pre-op diagnosis: Cystocele stage III Rectocele stage 1 Post-op diagnosis: same Procedure done: Anterior colporrhaphy augmented with allograft Surgeon: Kuldeep Villavicencio MD Estimated blood loss (mL): 10 IV fluids (mL): 1,500 Urine output (mL): 150 Findings: Cystocele Procedure: After obtaining informed consent, the patient was taken to the operating room and placed in the supine position, given general anesthesia, and prepped and draped in sterile fashion. The abdomen, vulva and vagina were prepped and draped in a sterile manner. A time out procedure was performed. The vaginal mucosa was then injected in the midline with 2% lidocaine with epinephrine. The vaginal mucosa was scored in the midline with the Bovie approximately 1 cm medial to the urethral meatus to 1 cm distal to the vaginal cuff. This vaginal mucosa was then undermined and then incised in the midline with the Metzenbaum scissors. The lateral aspects of the vaginal mucosa were then grasped with the Allis clamps and the vaginal mucosa was then dissected off the underlying fascia with the Metzenbaum scissors. Again, there was noted to be quite a bit of oozing at the incision, which was controlled with cautery. After adequate dissection was performed, bilaterally. A coloplast Dermis allograft was modified at time of application to fit spacea, 3 x 3 cm piece. The Coloplast allograft was placed in front of cystocele ready to be implanted facing the vagina mucosa. Suture is placed at distal end of graft and placed towards vaginal cuff. Final suture is placed on proximal portion of the graft to complete the placement overlying the bladder. Then Interrupted vertical mattress sutures of 0 Vicryl were used to elevate the cystocele superiorly. The excessive vaginal mucosa was then trimmed with the Metzenbaum scissors and the vaginal mucosa was then reapproximated in the running interlocking fashion with 2-0 Vicryl. After the anterior wall vaginal repair no need for posterior colporrhaphy was noted. The Levy catheter was with clear yellow urine. Excellent hemostasis was obtained. A vaginal pack is placed overnight as postoperative support for the vaginal tissues after graft placement and closure of vaginal incisions. Sponge, lap, needle, and instrument counts were correct times three. The patient was taken to the recovery room, awake and in stable condition.
--- NOTE | 2024-02-17 16:03 | PC.NURSE ---
1540 - REYNA Lester notified of pts vaginal packing as well as nurse in the room - per this nurse
[2024-02-17] MEDS: ketorolac 30 mg/mL INJ IVP ×2 (16:17→22:23)
[2024-02-17] MEDS: HYDROcodone-acetaminophen 5-325 mg Tablet PO (18:22)
[2024-02-17] MEDS: dextrose 5%-lactated ringers 1,000 ML 125 ML IV (21:00)
[2024-02-18] MEDS: ketorolac 30 mg/mL INJ IVP (04:40)
--- NOTE | 2024-02-18 05:19 | PC.NURSE ---
Packing removed at this time by Brianna Burris RN
[2024-02-18 05:40] LABS: Hematocrit 31.8 % (36-47); Mean Corpuscular HGB Conc 33.3 g/dL (30-55); Mean Corpuscular Hemoglobin 30.5 pg (27-33); Mean Corpuscular Volume 91.6 fl (85-98); Mean Platelet Volume 9.8 fL (7.4-10.4); Platelet Count 206 10^3/cmm (157-399); Red Blood Count 3.47 10^6/uL (3.85-5.65); Red Cell Distribution Width 13.2 % (12.1-15.1); White Blood Count 9.65 10^3/uL (3.29-11.43)
[2024-02-18 10:01] VITALS: BP 111/66; PULSE 72; RESP 16; TEMP 36.7; O2SAT 94
--- NOTE | 2024-02-18 12:24 | P.DS_ITS ---
Discharge Providers VISUAL MERCHANDISING ASSISTANT Date of Admission: 02/17/24 15:15 Date of Discharge: 02/18/24 Attending Provider at Admission: Kuldeep Villavicencio MD Attending Provider at Discharge: Kuldeep Villavicencio MD Primary Care Provider: Moe Colbert MD Reason for Visit Reason for Visit: N81.10, N81.6 Hospital Course Hospital Course Mrs. King 78-year-old female admitted for planned anterior vaginal repair. An anterior colporrhaphy augmented with allograft was performed without complication. Overnight observation was uneventful. Tolerating diet well. Ambulating without difficulty. She is afebrile hemodynamically stable postoperative day 1. She was counseled regarding pelvic rest for 6 weeks (no sex, no tampons, no vaginal douches). Return to the emergency room if any fever, increased bleeding or pain. Physical Exam Narrative: GA: Alert and oriented ?3. HEENT: WNL. Heart: Regular rate and rhythm. Lungs: Clear to auscultation bilaterally. Abdomen: Bowel sounds present, nontender.. H[employer]ER: spotting bleeding. Extremities: No edema, no cyanosis, no calves pain. Urinary Catheter Management: Levy: Cath Placed During This Visit: yes, but has since been removed by the nurse Reason for Continuing Indwelling Catheter: Decision to DC Catheter Urinary Catheter Date of Insertion: 02/17/24 Urinary Catheter Time of Insertion: 13:57 Date Urinary Catheter Removed: 02/18/24 Time Urinary Catheter Discontinued: 05:19 History History History 1 Term 1 0 Miscarriages/Ectopic 0 Living Children 1 Discharge Data Studies Completed and Pending Laboratory Results WBC 9.65 10^3/uL (3.29-11.43) 02/18/24 05:20 RBC 3.47 10^6/uL (3.85-5.65) L 02/18/24 05:20 Hgb 10.60 g/dL (11.27-16.99) L 02/18/24 05:20 Hct 31.8 % (36-47) L 02/18/24 05:20 MCV 91.6 fl (85-98) 02/18/24 05:20 MCH 30.5 pg (27-33) 02/18/24 05:20 MCHC 33.3 g/dL (30-55) 02/18/24 05:20 RDW 13.2 % (12.1-15.1) 02/18/24 05:20 Plt Count 206 10^3/cmm (157-399) 02/18/24 05:20 MPV 9.8 fL (7.4-10.4) 02/18/24 05:20 Neut % (Auto) 48.1 % 02/12/24 11:00 Lymph % (Auto) 39.1 % 02/12/24 11:00 [place] % (Auto) 9.8 % 02/12/24 11:00 Eos % (Auto) 2.2 % 02/12/24 11:00 Baso % (Auto) 0.5 % 02/12/24 11:00 Neut # (Auto) 2.91 10^3/uL (1.8-7.7) 02/12/24 11:00 Lymph # (Auto) 2.4 10^3/uL (0.8-4.8) 02/12/24 11:00 [place] # (Auto) 0.6 10^3/uL (0.2-0.9) 02/12/24 11:00 Eos # (Auto) 0.1 10^3/uL (0.0-0.8) 02/12/24 11:00 Baso # (Auto) 0.0 10^3/uL (0.0-0.1) 02/12/24 11:00 Nucleated RBC % (auto) 0 % 02/12/24 11:00 Nucleated RBCs # 0.0 /100WBC 02/12/24 11:00 Sodium 142 mmol/L (136-145) 02/12/24 11:00 Potassium 4.2 mmol/L (3.5-5.1) 02/12/24 11:00 Chloride 107 mmol/L (98-107) 02/12/24 11:00 Carbon Dioxide 25 mmol/L (22-29) 02/12/24 11:00 Anion Gap 14.2 (5-19) 02/12/24 11:00 BUN 22 mg/dL (8-23) 02/12/24 11:00 Creatinine 0.6 mg/dL (0.5-0.9) 02/12/24 11:00 GFR Calculation Not Reportable 02/12/24 11:00 Glucose 76 mg/dL (65-115) 02/12/24 11:00 Calculated Osmolality 296 mOsm/kg (285-295) H 02/12/24 11:00 Calcium 8.9 mg/dL (8.5-10.5) 02/12/24 11:00 Total Bilirubin 0.3 mg/dL (0.15-1.2) 02/12/24 11:00 AST 31 U/L (0-32) 02/12/24 11:00 ALT 15 U/L (0-33) 02/12/24 11:00 Alkaline Phosphatase 76 U/L (35-105) 02/12/24 11:00 Total Protein 6.5 g/dL (6.6-8.7) L 02/12/24 11:00 Albumin 4.3 g/dL (3.5-5.2) 02/12/24 11:00 Globulin 2.2 g/dL (1.3-4.6) 02/12/24 11:00 Blood Type O Positive 02/17/24 11:37 Rho(D) Type Rh positive 02/17/24 11:37 Antibody Screen Negative 02/17/24 11:37 Vitals Last Vital Signs Temp 98.0 F 02/18/24 10:01 Pulse 72 02/18/24 10:01 Resp 16 02/18/24 10:01 BP 111/66 02/18/24 10:01 Pulse Ox 94 02/18/24 10:01 O2 Del Method Room Air 02/18/24 10:01 O2 Flow Rate 8 02/17/24 15:15 Results Labs OB ([facility]): Blood Type O Positive 02/17/24 Antibody Screen Negative 02/17/24 Hct 31.8 % (36-47) L 02/18/24 Hgb 10.60 g/dL (11.27-16.99) L 02/18/24 Rho(D) Type Rh positive 02/17/24 Plt Count 206 10^3/cmm (157-399) 02/18/24 Discharge Plan Discharge Patient Disposition: Home Condition: Stable Prescriptions: New docusate sodium 100 mg Capsule 100 mg PO BID 0RF ibuprofen 800 mg tablet 800 mg PO TID PRN (Reason: pain) Qty: 60 0RF acetaminophen 325 mg capsule 325 mg PO Q4H PRN (Reason: fever or pain) Qty: 60 0RF nitrofurantoin macrocrystal 100 mg capsule 100 mg PO BID 3 Days Qty: 6 0RF Rx Instructions: must administer with a meal/food Continued omega-3 fatty acids [Fish Oil Concentrate] 1,000 mg capsule 1,000 mg PO DAILY Ultra CoQ10 75 mg capsule 75 mg PO DAILY peppermint oil 0.2 mL capsule,delayed release(DR/EC) 0.2 ml PO DAILY PRN (Reason: ibs) multivitamin with minerals [Hair,Skin and Nails] Tablet 1 tab PO DAILY fexofenadine [Yohana Allergy] 60 mg tablet 60 mg PO DAILY loperamide [Imodium A-D] 2 mg tablet 2 mg PO Q6H PRN (Reason: Diarrhea) lutein-zeaxanthin extract 15-0.7 mg capsule 15 cap PO DAILY lysine [L-Lysine] 500 mg tablet 500 mg PO DAILY cosme root-pyridoxine HCl(B6) 325-25 mg capsule 325 cap PO DAILY diclofenac sodium 1 % gel 2 g topical QID PRN (Reason: Pain) Rx Instructions: apply to affected area as needed aspirin 81 mg tablet,chewable 81 mg PO DAILY meloxicam 15 mg tablet 15 mg PO DAILY tramadol 50 mg tablet 50 mg PO DAILY Premarin 0.625 mg tablet 0.625 mg PO DAILY Qty: 30 2RF acetaminophen 325 mg capsule 325 mg PO Q4H PRN (Reason: fever or pain) Qty: 60 0RF Discharge Orders: Discharge Order (Routine); Ordered 02/18/24 Ordered By: Kuldeep Villavicencio Referrals: Kuldeep Villavicencio MD [Physician] - 03/29/24 4:00 pm Ayah Marques APN, WHNP [Nurse Practitioner] - 03/03/24 11:00 am Patient Instructions: Laxative, Stool Softeners (By mouth), Acute Wound Care (DC), Anterior Vaginal Repair (DC), Anterior Vaginal Repair (GEN), Opioid Safety, Post Anesthesia Care Activity Restrictions/Additional Instructions: 1. Please call [facility] on next working day to make your post-operative appointment in 2 weeks. 2. Please stay home until you come back to the clinic on first post- hospatilization check up. 3. Please follow instructions on your medications CAREFULLY. 4. If you have abdominal incision, do not cover it unless dressing is necessary because of drainage. OK to shower, but avoid bath. Leave steri-strips until they fall off. If they are still on one week after surgery, you may remove them. 5. If you had vaginal surgery or vaginal repair, Dr. Villavicencio may instruct you to take SITZ bath. 6. Yellow, blood tinged odorous vaginal discharge is usually normal after hyst erectomy or vaginal surgeries. 7. No SEXUAL INTERCOURSE, tampons, or douches until you are completely released from the post-operative care. 8. Avoid constipation by eating right and maybe using some Metamucil or Milk of Magnesia. 9. All prescription refills are given during the working hours. Please do no wait till it runs out. Call the clinic at [phone] before your medication runs out. The clinic will get in touch with your doctor to prescribe medications if necessary. 10. Please remain within 40 mile radius from our hospital because emergencies do happen now and then during the post-operative period. 11. If you have stairs at home, take one step at a time slowly and minimize the number of trips. It helps to stay in one floor for the next few days. No lifting except what you can lift by one hand until you are released from the post-operative care. 12. Driving is discouraged until you are well healed. It may be 3-4 weeks before you feel strong enough to drive. You should be able to turn and look through the rear window without pain and you should be able to push the brake pedal very hard without pain before you drive. No fast rules, but SAFETY should be your primary concern. DO NOT drive if you are on sedating medications such as narcotics. 13. Call the clinic (during working hours) to make urgent appointment or go to the Emergency room, if any of the following occurs: i. Vaginal bleeding becomes heavy, more than a period. ii. Incision becomes red and sore, or drains pus. iii. Your TEMPERATURE is over 100.4F or you have chill. iv. IV site becomes red and swollen (a little ``knot?? is usually OK) v. Persistent nausea and vomiting vi. Persistent constipation or diarrhea vii. Rash or allergic reaction to medications. Discharge Attestations VISUAL MERCHANDISING ASSISTANT Time Spent in Discharge Care*: greater than 30 min Coding Level of Care Code Acute Code for Chg Fwd
[2024-02-18 12:30] VITALS: BP 111/66; PULSE 72; RESP 16; TEMP 36.7; O2SAT 94
== END 2024-02-18 12:30 | disposition home or self-care (01) ==
LOC: OBGYN 15:16
PROVIDERS: Admitting Provider Obstetrics & Gynecology; PCP Family Medicine; Visit Provider Obstetrics & Gynecology
PROC: 0JQC0ZZ Repair Pelvic Region Subcutaneous Tissue and Fascia, Open Approach (ICD-10-PCS; CPT 57240; principal; 2024-02-17 11:45)
DX: N81.10 Cystocele, unspecified (principal); N81.6 Rectocele; Z79.82 Long term (current) use of aspirin
CPT/HCPCS: 57240; 36415; 80053; 85025; 85027; 86850; 86900; 96374; 96376; C1762; G0378; J0690; J1100; J1650; J1885; J2405; J2704; J3010; J7030; J7121

== ENCOUNTER 2024-04-15 14:45 | Outpatient (CLI) | payer MEDICARE, OTHER, SELFPAY ==
--- NOTE | 2024-04-15 15:00 | MM_ITS ---
WS: [id number] LEFT 3D TOMOSYNTHESIS DIGITAL MAMMOGRAPHY WITH CAD CLINICAL INFORMATION: R92.8 - Other abnormal and inconclusive findings on diagn... HISTORY: 6-month follow-up calcifications COMPARISON: 10/02/2023 TECHNIQUE: 3 views of the left breast were obtained. FINDINGS: The left breast is composed of heterogeneous fibroglandular density tissue, which can limit the detec tion of small underlying mass lesions. Again seen are the clustered calcifications outer LEFT breast best seen on the cc view. These are unchanged in appearance compared to previous. Recommend additiona l 6-month follow-up until 18 to 24-month stability MM/MM diag LT tomosynthesis [id number] IMPRESSION: DENSITY: The breasts are heterogeneously dense, which may obscure small masses. BI-RADS: 3 - Probably Benign FOLLOW UP: 6 Month Follow-up Recommend 6-month follow-up LEFT breast calcifications with spot magnification views
== END 2024-04-15 14:46 | disposition home or self-care (01) ==
LOC: RAD 14:46
PROVIDERS: PCP Family Medicine; Visit Provider Obstetrics & Gynecology
DX: R92.8 Other abnormal and inconclusive findings on diagnostic imaging of breast (principal); R92.333 Mammographic heterogeneous density, bilateral breasts; R92.1 Mammographic calcification found on diagnostic imaging of breast
CPT/HCPCS: 77061; G0279

== ENCOUNTER 2024-10-04 14:28 | Outpatient (CLI) | payer MEDICARE, OTHER, SELFPAY ==
--- NOTE | 2024-10-04 14:30 | MM_ITS ---
WS: [id number] BILATERAL 3D TOMOSYNTHESIS DIGITAL DIAGNOSTIC MAMMOGRAPHY WITH CAD CLINICAL INFORMATION: R92.8 - Other abnormal and inconclusive findings on diagn... HISTORY: Follow-up calcifications 6-month COMPARISON: 2023 TECHNIQUE: Bilateral CC, MLO, and ML views. FINDINGS: The breasts are composed of heterogeneous fibroglandular density, which can limit the detection of small underlying mass lesions. Again seen are the faint clustered calcifications outer LEFT breast best seen on the cc view. These are unchanged compared to previous. Recommend additional 6-month follow-up until 18 to 24-month stability. Calcifications are stable since 10/02/2023 RIGHT breast is unchanged. MM/MM diag tomosynthesis [id number] IMPRESSION: DENSITY: The breasts are heterogeneously dense, which may obscure small masses. BI-RADS: 3 - Probably Benign FOLLOW UP: 6 Month Follow-up Recommend additional 6-month follow-up until 18 to 24-month stability. Calcific ations are stable since 10/02/2023
== END 2024-10-04 14:29 | disposition home or self-care (01) ==
LOC: RAD 14:31
PROVIDERS: PCP Family Medicine; Visit Provider Nurse Practitioner Women's Health
DX: R92.8 Other abnormal and inconclusive findings on diagnostic imaging of breast (principal); R92.333 Mammographic heterogeneous density, bilateral breasts; R92.1 Mammographic calcification found on diagnostic imaging of breast
CPT/HCPCS: 77062; G0279

== ENCOUNTER 2025-04-14 13:46 | Outpatient (CLI) | payer MEDICARE, OTHER, SELFPAY ==
--- NOTE | 2025-04-14 14:00 | MM_ITS ---
WS: [id number] LEFT 3D TOMOSYNTHESIS DIGITAL MAMMOGRAPHY WITH CAD CLINICAL INFORMATION: R92.8 - Other abnormal and inconclusive findings on diagn... HISTORY: 6-month follow-up calcifications COMPARISON: 2024 TECHNIQUE: 3 views of the left breast were obtained. FINDINGS: The left breast is composed of heterogeneous fibroglandular density tissue, which can limit the detection of small underlying mass lesions. Again seen are the faint cluster calcifications outer LEFT breast best seen on the cc view. Calcifications are stable since 10/02/2023. Recommend return to annual screening mammography MM/MM diag tomosynthesis [id number] IMPRESSION: DENSITY: The breasts are heterogeneously dense, which may obscure small masses. BI-RADS: 2 - Benign FOLLOW UP: 1 Year Follow-up Recommend return to annual screening mammography.
== END 2025-04-14 13:47 | disposition home or self-care (01) ==
LOC: RAD 13:48
PROVIDERS: PCP Family Medicine; Visit Provider Nurse Practitioner Women's Health
DX: Z12.31 Encounter for screening mammogram for malignant neoplasm of breast (principal); R92.8 Other abnormal and inconclusive findings on diagnostic imaging of breast; R92.333 Mammographic heterogeneous density, bilateral breasts; R92.323 Mammographic fibroglandular density, bilateral breasts; R92.1 Mammographic calcification found on diagnostic imaging of breast
CPT/HCPCS: 77061; 77063